=== PATIENT | female | born 1990 | race Two or more races ===

== ENCOUNTER 2025-01-07 14:46 | Emergency (ER) | payer MEDICAID ==
[~2025-01-07] VITALS: Ht 154.9 cm; Wt 59.0 kg
[~2025-01-07 14:46] MED LIST: KETO10TA2 PO; METO-295 PO; SUMA100T PO
[2025-01-07 15:04] VITALS: BP 115/65; TEMP 98.5
[2025-01-07] MEDS ORDERED: ACETAMINOPHEN ES 500 MG TABLET ONE (15:29)
[2025-01-07] MEDS: ACETAMINOPHEN ES 500 MG TABLET PO ONE (15:31)
[2025-01-07 15:32] VITALS: O2SAT 99
== END 2025-01-07 15:32 | disposition home or self-care (01) ==
LOC: ER 15:24
DX: B34.9 Viral infection, unspecified (principal); R05.9 Cough, unspecified; R42 Dizziness and giddiness